=== PATIENT | female | born 1990 | race Caucasian/White ===

== ENCOUNTER 2016-06-06 15:53 | Emergency (ER) | payer MEDICAID, OTHER ==
[2016-06-06 15:53] VITALS: BMI 26.8
[2016-06-06 15:59] VITALS: RESP 20
[2016-06-06 16:36] LABS: RBC URINE 1165 /hpf (0-3); URINE BACTERIA FEW (<OCC); URINE BILIRUBIN NEGATIVE (NEGATIVE); URINE BLOOD 3+ (NEGATIVE); URINE COLOR Amber (YELLOW); URINE GLUCOSE (UA) NORMAL (Normal); URINE KETONE NEGATIVE (NEGATIVE); URINE LEUKOCYTE ESTERASE 1+ Leu/uL (Negative); URINE PROTEIN 1+ mg/dL (NEGATIVE); WBC URINE 15 /hpf (0-5)
[2016-06-06] MEDS ORDERED: Sodium Chloride 0.9% 1,000 ML IV ONE (16:52)
[2016-06-06] MEDS ORDERED: Sodium Chloride 0.9% 1,000 ML ONE (17:04)
[2016-06-06 17:26] LABS: BASO % 0.4 % (0.0-2.0); EOS # 0.1 K/uL (0.0-0.7); EOS % 1.7 % (0.0-4.0); HEMATOCRIT 35.9 % (34.0-47.0); LYMPH # 2.1 K/uL (1.0-4.3); LYMPH % 27.7 % (20.0-40.0); MEAN CELL VOLUME 84.7 fL (81.0-99.0); MEAN CORPUSCULAR HEMOGLOBIN 27.9 pg (27.0-31.0); MEAN PLATELET VOLUME 9.4 fL (7.2-11.7); MONO # 0.7 K/uL (0.0-0.8); MONO % 8.8 % (0.0-10.0); RED CELL DISTRIBUTION WIDTH 15.7 % (11.5-14.5); WHITE BLOOD COUNT 7.4 K/uL (4.8-10.8)
[2016-06-06 17:35] LABS: CHLORIDE 101 mmol/L (98-107); SODIUM 140 mmol/L (132-148)
[2016-06-06 17:36] LABS: POTASSIUM 3.8 mmol/L (3.6-5.2)
[2016-06-06 17:37] LABS: GFR AFRICAN-AMERICAN > 60
[2016-06-06 17:38] LABS: ALB/GLOB RATIO 1.3 (1.0-2.1); ALKALINE PHOSPHATASE 54 U/L (38-126); ALT/SGPT 28 U/L (9-52); AST/SGOT 26 U/L (14-36); BILIRUBIN,TOTAL 0.2 mg/dL (0.2-1.3); BLOOD UREA NITROGEN 10 mg/dL (7-17); CALCIUM 8.2 mg/dl (8.6-10.4); CARBON DIOXIDE 24 mmol/L (22-30); GLUCOSE,RANDOM 101 mg/dL (65-105); TOTAL PROTEIN 7.4 g/dL (6.3-8.3)
--- NOTE | 2016-06-06 18:02 | US ---
HISTORY: Upper abdominal pain COMPARISON: None. TECHNIQUE: Sonographic evaluation of the right upper quadrant of the abdomen. FINDINGS: LIVER: Measures 16.4 cm in length. Patent portal vein. Portal venous flow: Hepatopetal. Unremarkable echogenicity of the liver parenchyma. No mass. No intrahepatic bile duct dilatation. GALLBLADDER: Cholelithiasis. Negative study for gallbladder wall thickening, pericholecystic fluid, sonographic Moran's sign. COMMON BILE DUCT: Measures 3.9 mm. No stones. No dilatation. PANCREAS: Unremarkable as visualized. No mass. No ductal dilatation. RIGHT KIDNEY: Measures 10.9 x 3.9 cm in length. Normal echogenicity. No calculus, mass, or hydronephrosis. AORTA: No aneurysmal dilatation. IVC: Unremarkable. OTHER FINDINGS: None . IMPRESSION: Cholelithiasis. No sonographic evidence of acute cholecystitis.
--- NOTE | 2016-06-06 18:04 | C.PDOC ---
Time Seen by Provider: 06/06/16 16:41 Chief Complaint (Nursing): Abdominal Pain History Per: Patient, Smeller History/Exam Limitations: language barrier Onset/Duration Of Symptoms: Days (5) Severity: Moderate Location Of Pain/Discomfort: RUQ, Epigastric Radiation Of Pain To:: None Quality Of Discomfort: Unable To Describe, "Pain" Exacerbating Factors: None Alleviating Factors: None Additional History Per: Prior Records Last Menstral Period: Now Past Medical History Reviewed: Historical Data, Nursing Documentation, Vital Signs Vital Signs: Last Vital Signs Temp 98.3 F 06/06/16 15:56 Pulse 77 06/06/16 15:56 Resp 20 06/06/16 15:56 BP 106/71 06/06/16 15:56 Pulse Ox 96 06/06/16 18:04 - Medical History PMH: Sleep Apnea Surgical History: No Surg Hx - [facility] Procedures REPAIR OB LACERATION NEC (03/05/13) Family History: States: Unknown Family Hx - Social History Hx Tobacco Use: No Hx Alcohol Use: No (socially) Hx Substance Use: No - Immunization History Hx Tetanus Toxoid Vaccination: No Hx Influenza Vaccination: No Hx Pneumococcal Vaccination: No Review Of Systems Except As Marked, All Systems Reviewed And Found Negative. Constitutional: Negative for: Fever, Weakness Cardiovascular: Negative for: Chest Pain Respiratory: Negative for: Cough, Shortness of Breath, Hemoptysis Gastrointestinal: Positive for: Abdominal Pain (upper), Diarrhea (x2). Negative for: Vomiting, Melena, Hematochezia, Hematemesis Genitourinary: Negative for: Dysuria Musculoskeletal: Negative for: Neck Pain, Back Pain Skin: Negative for: Rash Neurological: Negative for: Weakness, Numbness, Seizures, Altered Mental Status Physical Exam - Physical Exam Appears: Non-toxic, No Acute Distress Skin: Normal Color, Warm, Dry, No Rash Head: Atraumatic, Normacephalic Eye(s): bilateral: PERRL, EOMI Neck: Normal ROM, Supple Cardiovascular: Rhythm Regular Respiratory: Normal Breath Sounds, No Accessory Muscle Use Gastrointestinal/Abdominal: Soft, Tenderness (RUQ), No Guarding, No Rebound Back: No CVA Tenderness Extremity: Normal ROM, No Pedal Edema, No Calf Tenderness Neurological/Psych: Oriented x3, Normal Motor, Normal Sensation ED Course And Treatment - Laboratory Results Result Diagrams: 06/06/16 17:15 06/06/16 17:15 Lab Interpretation: No Acute Changes Urine POC: Negative O2 Sat by Pulse Oximetry: 96 Pulse Ox Interpretation: Normal - CT Scan/US RUQ Sono Other Rad Studies (CT/US): Read By Radiologist, Radiology Report Reviewed CT/US Interpretation: IMPRESSION: Cholelithiasis. No sonographic evidence of acute cholecystitis. Progress Note: Pain resolved. Abdomen nontender. Reassessment Condition: Improved Progress - Interventions Interventions:: Observation, Intravenous fluid - Medications Administered Intravenous: Antiemetic, H-2 emmanuel - Data Reviewed Data Reviewed: Lab, Diagnostic imaging, Old records - Patient Status Patient status: Completely improved - Continuity of Care Discussed patient case with:: Patient, ED Nurse - Patient Plan Patient Plan: Discharge, F/U with PCP Disposition Counseled Patient/Family Regarding: Studies Performed, Diagnosis, Need For Followup, Rx Given - Disposition Referrals: [facility] [Outside] Ghassan Worthy MD [Staff Provider] - Disposition: HOME/ ROUTINE Disposition Time: 18:10 Condition: IMPROVED Additional Instructions: Follow up with a Surgeon for further evaluation and treatment. Return to the ER if you develop fever, vomiting, worsening of symptoms or if you have any other concerns. Prescriptions: Pantoprazole Sodium [Protonix] 40 mg PO DAILY #14 ect Instructions: Biliary Colic (ED) Print Language: TURKISH - Clinical Impression Clinical Impression: Multiple gallstones, Pain of upper abdomen
[2016-06-06 18:21] VITALS: BP 101/65; PULSE 68; TEMP 97.9; O2SAT 99
== END 2016-06-06 18:21 | disposition home or self-care (01) ==
LOC: C.ER 15:53
DX: K80.80 Other cholelithiasis without obstruction (principal); R10.11 Right upper quadrant pain
CPT/HCPCS: 76705; 80053; 81001; 83690; 84703; 85025; 96361; 96374; 96375; 99284; J2765; J7040

== ENCOUNTER 2016-09-21 10:01 | Day surgery (SDC) | payer OTHER ==
[2016-09-16 09:54] VITALS: BMI 27.4
[2016-09-21] MEDS ORDERED: ceFAZolin IV 1 gm in Dextrose 1 GM/50 ML BAG IVPB ONE ×2 (13:14→14:20)
[2016-09-21] MEDS ORDERED: Bupivacaine-Epi 0.25%-1:200,000 PF Inj ONE (13:14)
[2016-09-21] MEDS ORDERED: Lidocaine 1% Inj (20ml) ONE (13:24)
[2016-09-21] MEDS ORDERED: Propofol 10 mg/ml Inj (20 ML) ONE (14:18)
[2016-09-21] MEDS ORDERED: Midazolam 2 MG/2 ML VIAL ONE (14:18)
[2016-09-21] MEDS ORDERED: Succinylcholine Chloride 20 mg/ml Syr (5 ml) IV ONE (14:19)
[2016-09-21] MEDS ORDERED: Lactated Ringer's 1,000 ML IV ONE ×2 (14:20→15:51)
[2016-09-21] MEDS ORDERED: Oxycodone/Acetaminophen 5/325 mg Tab PO PRN (16:15)
--- NOTE | 2016-09-21 16:15 | PCM.SURG1 ---
Surgeon's Initial Post Op Note - Surgeon's Notes Surgeon: Dr. Worthy Application Support Analyst: Dr. Conrad, Dr. Hayden Type of Anesthesia: General Endo, Local Pre-Operative Diagnosis: cholecystitis Operative Findings: see op report Post-Operative Diagnosis: same Operation Performed: laparoscopic cholecystectomy Specimen/Specimens Removed: gallbladder Estimated Blood Loss: EBL {In ML}: 10 Blood Products Given: N/A Drains Used: No Drains Post-Op Condition: Good Date of Surgery/Procedure: 09/21/16 Time of Surgery/Procedure: 16:15
[2016-09-21] MEDS ORDERED: HYDROmorphone 0.5 mg/0.5 ml ISec IVP PRN (16:21)
[2016-09-21 18:38] VITALS: BP 101/62; PULSE 73; RESP 18; TEMP 98.1; O2SAT 100
--- NOTE | 2016-09-22 05:37 | OP ---
PROCEDURE DATE: 09/21/2016 PREOPERATIVE DIAGNOSES: 1. Chronic cholecystitis and cholelithiasis. 2. Abdominal pain. POSTOPERATIVE DIAGNOSES: 1. Chronic cholecystitis and cholelithiasis. 2. Abdominal pain. 3. Extensive postinfectious adhesion from the omentum to the colon and to the gallbladder and to the duodenum. PROCEDURE: 1. Laparoscopic cholecystectomy. 2. Laparoscopic extensive lysis of adhesion. SURGEON: Ghassan Worthy MD BLASTING CONTRACT MAN: Eva Hayden, PGY-3 resident and JAMES Batres TYPE OF ANESTHESIA: General endotracheal tube anesthesia. ESTIMATED BLOOD LOSS: Around 10 mL. DRAINS: None. PATHOLOGY: Gallbladder with gallstones were sent to the pathology. COMPLICATIONS: None. INTRAOPERATIVE FINDINGS: The patient had extensive postinfectious adhesion of the omentum to the gallbladder and to the colon and to the duodenum and there was extensive adhesion of the colon and duodenum to the gallbladder and patient has cholelithiasis and changes of chronic cholecystitis. DESCRIPTION OF PROCEDURE: This 26-year-old female was diagnosed with chronic cholecystitis and cholelithiasis and the patient was consented for the laparoscopic cholecystectomy, possible open, brought to the OR, placed supine on the operating room table. After induction of the anesthesia, abdomen was prepped and draped in an usual sterile fashion and supraumbilical transverse 1.5 cm incision was made. After incising the skin and subcutaneous tissue and the fascia, the Mohan port was placed. Pneumo was created. Another 12 mm port was placed in midline below costal margin and two 5 mm ports were placed in midclavicular and anterior axillary line, after the grasper and dissector was introduced and gallbladder appears to have extensive adhesion and first extensive lysis of adhesion was done to identify the fundus of the gallbladder and the gallbladder was retracted cranially and now the body of the gallbladder was dissected free from the surrounding structure and the infundibulum was also dissected and infundibulum was identified. The Calot's triangle dissection was done. The cystic duct and cystic artery was identified and the critical view of the safety was visualized and the cystic duct was clipped at 3 places and cut in between 2 clips nearby gallbladder and the gallbladder was dissected free from the gallbladder fossa, taken in the EndoCatch bag, taken out through the umbilical port site and sent over the table for the pathology. There was proper hemostasis in each and every part of the procedure. The suction irrigation of the gallbladder fossa as well as perihepatic area was done and all the ports were taken out and under vision, pneumo was deflated. The umbilical port site was closed in 2 layers, the fascia with a 0 Vicryl interrupted sutures, skin with a 4-0 Monocryl, and dry sterile dressing was applied. The patient tolerated the procedure well. Count of instruments was correct. There was no apparent complication. Ghassan Worthy MD MTDChristine
== END 2016-09-21 18:41 | disposition home or self-care (01) ==
LOC: C.SDS 10:01
PROVIDERS: ATTEND Surgery Surgical Critical Care
DX: K80.10 Calculus of gallbladder with chronic cholecystitis without obstruction (principal); K82.8 Other specified diseases of gallbladder
CPT/HCPCS: 47562; 88304; C1713; J0690; J1170; J1885; J2001; J2250; J2405; J2704; J3010; J7120